=== PATIENT | female | born 1985 | race Caucasian/White ===

== ENCOUNTER 2016-07-12 11:23 | Outpatient (CLI) | payer OTHER | END 2016-07-12 23:00 | LOC: LAB SRH 11:23 | DX: Z34.92 Encounter for supervision of normal pregnancy, unspecified, second trimester (principal) | CPT/HCPCS: 90004; 90039; 90074; 90078; 90261; 90364; 90599; 90600; 90605; 90606; 90710; 90851; 91162; 91163; 92863; 93140; 98480; 99777 ==

== ENCOUNTER 2016-07-24 08:40 | Outpatient (CLI) | payer OTHER | END 2016-07-24 23:00 | LOC: LAB SRH 08:40 | DX: O98.412 Viral hepatitis complicating pregnancy, second trimester (principal) | CPT/HCPCS: 90073; 90074; 90075; 90077; 90078; 92710; 99777 ==

== ENCOUNTER → 2016-08-09 | Outpatient (CLI) | payer OTHER ==
[~2016-08-09] MED LIST: METHADONE HCL10 MG PO; PRENATAL VITAMINS PO
== END ==
LOC: LAB SRH 10:45
DX: O98.412 Viral hepatitis complicating pregnancy, second trimester (principal)
CPT/HCPCS: 90074; 93002

== ENCOUNTER 2016-08-15 16:45 | Outpatient (CLI) | payer OTHER ==
[2016-08-16] MEDS ORDERED: METHADONE HCL10 MG PO (18:54)
[2016-08-16] MEDS ORDERED: PRENATAL VITAMINS PO (18:54)
== END 2016-08-15 19:00 | disposition home or self-care (01) ==
LOC: OBC SRH 16:45 → OB SRH 16:46 → OBC SRH 19:00
PROC: 4A0HXCZ Measurement of Products of Conception, Cardiac Rate, External Approach (ICD-10-PCS; principal; 2016-08-15)
DX: O46.8X3 Other antepartum hemorrhage, third trimester (principal); Z3A.38 38 weeks gestation of pregnancy

== ENCOUNTER 2016-08-16 16:35 | Inpatient (IN) | payer OTHER ==
[~2016-08-16] VITALS: Ht 170.2 cm; Wt 76.2 kg
[2016-08-16] MEDS ORDERED: PRENATAL VITAMINS PO (18:54)
[2016-08-16] MEDS ORDERED: METHADONE HCL10 MG PO (18:54)
[2016-08-17 09:49] VITALS: BP 121/71
[2016-08-17 11:45] VITALS: BP 132/67
--- NOTE | 2016-08-17 13:11 | Provider's Discharge Care Plan ---
Problem, Goal, Plan Problem List 1. Normal vaginal delivery Goals: Improve disease control Instructions: Follow up as directed
--- NOTE | 2016-08-17 13:11 | Provider's Discharge Care Plan ---
Problem, Goal, Plan Problem List 1. Normal vaginal delivery Goals: Improve disease control Instructions: Follow up as directed
== END 2016-08-17 15:30 | disposition home or self-care (01) | DRG 560 ==
LOC: OBC SRH 16:35 → OB SRH 16:37 → OBC SRH 17:32 → OB SRH 17:33
PROVIDERS: ADMIT Obstetrics & Gynecology
PROC: 10E0XZZ Delivery of Products of Conception, External Approach (ICD-10-PCS; principal; 2016-08-17)
DX: O69.1XX0 Labor and delivery complicated by cord around neck, with compression, not applicable or unspecified (principal); Z37.0 Single live birth; O99.324 Drug use complicating childbirth; F11.90 Opioid use, unspecified, uncomplicated; O98.413 Viral hepatitis complicating pregnancy, third trimester; B18.2 Chronic viral hepatitis C; Z3A.38 38 weeks gestation of pregnancy; O99.334 Smoking (tobacco) complicating childbirth; F17.210 Nicotine dependence, cigarettes, uncomplicated
CPT/HCPCS: 40012; 83475; 91295; 92237; 92760; 92761; 92762; 92763; 92764; 92765; 92766; 92767